=== PATIENT | male | born 1990 | race African-American/Black ===

== ENCOUNTER 2020-11-22 10:17 | Emergency (ER) | payer SELFPAY ==
[2020-11-22 11:34] LABS: #Basophils 0.1 thou/uL (0.0-0.2); #Lymphocytes 2.2 thou/uL (1.20-3.40); #Monocytes 0.7 thou/uL (0.11-0.59); #Neutrophils 4.1 thou/uL (1.40-6.50); %Basophils 1.2 % (0.0-1.0); %Eosinophils 0.3 % (0.0-10.0); %Monocytes 9.7 % (0.0-10.0); %Neutrophils 57.8 % (42.0-75.0); Hemoglobin 16.9 g/dL (14.0-18.0); Mean Corpuscular HGB CONC 33.7 g/dL (32.0-36.0); Mean Corpuscular Hemoglobin 33.3 pg (27.0-31.0); Platelet Count 260 thou/uL (130-400); RBC Distribution Width 10.8 % (11.5-14.5); Red Blood Cell (RBC) Count 5.08 mill/uL (4.70-6.10); White Blood Cell (WBC) Count 7.1 thou/uL (4.8-10.8)
[2020-11-22 11:45] LABS: ALT (SGPT) 15 U/L (8-55); AST (SGOT) 34 U/L (5-34); Albumin 4.9 g/dL (3.5-5.0); Alkaline Phosphatase 88 U/L (40-110); Anion Gap 11 mmol/L (10-20); BUN (Urea Nitrogen) 7 mg/dL (8.9-20.6); Bilirubin, Total 0.7 mg/dL (0.2-1.2); Calc. Creatinine Clearance 0 mL/min (70-130); Calcium 9.6 mg/dL (7.8-10.44); Carbon Dioxide 29 mmol/L (22-29); Chloride 102 mmol/L (98-107); Globulin 3.7 g/dL (2.4-3.5); Glucose 86 mg/dL (70-105); Lipase 33 U/L (8-78); Potassium 3.8 mmol/L (3.5-5.1); Protein, Total 8.6 g/dL (6.0-8.3); Sodium 138 mmol/L (136-145)
[2020-11-22 12:06] LABS: Bilirubin Negative (Negative); Blood, Urine Negative (Negative); Clarity Clear (Clear); Glucose, Urine (Dipstick) Normal (Negative); Ketone, Urine Trace mg/dL (Negative); Leukocyte Negative Leu/uL (Negative); Nitrite Negative (Negative); Protein, Urine (Dipstick) 10 mg/dL (Neg-Trace); Specific Gravity, Urine 1.022 (1.002-1.036); pH, Urine 7.5 (5.0-9.0)
[2020-11-22] MEDS ORDERED: Acetaminophen 500 MG TAB ONE (13:24)
== END 2020-11-22 14:50 | disposition home or self-care (01) ==
LOC: ERS 10:17
DX: M62.82 Rhabdomyolysis (principal)
CPT/HCPCS: 36415; 80053; 81003; 82550; 83690; 85025; 99284